=== PATIENT | female | born 1960 | race Caucasian/White ===

== ENCOUNTER 2019-11-09 18:27 | Inpatient (IN) | payer BC, SELFPAY ==
[~2019-11-09 18:27] MED LIST: Heparin 1,000 UNITS/ML VIAL ONE
[2019-11-09 19:17] LABS: #Lymphocytes 0.6 thou/uL (1.20-3.40); #Monocytes 0.9 thou/uL (0.11-0.59); #Neutrophils 12.6 thou/uL (1.40-6.50); %Basophils 0.1 % (0.0-1.0); %Eosinophils 0.1 % (0.0-10.0); %Lymphocytes 4.3 % (21.0-51.0); %Monocytes 6.1 % (0.0-10.0); %Neutrophils 89.4 % (42.0-75.0); Hemoglobin 14.6 g/dL (12.0-16.0); Mean Corpuscular HGB CONC 33.9 g/dL (32.0-36.0); Mean Corpuscular Hemoglobin 28.7 pg (27.0-31.0); Mean Corpuscular Volume 84.8 fL (78.0-98.0); Platelet Count 248 thou/uL (130-400); RBC Distribution Width 11.8 % (11.5-14.5); White Blood Cell (WBC) Count 14.1 thou/uL (4.8-10.8)
[2019-11-09] MEDS ORDERED: Piperacillin/Tazobactam 4.5 GM VIAL ONE (19:53)
[2019-11-09] MEDS ORDERED: Ondansetron PF 4 MG/2 ML Vial ONE (19:53)
[2019-11-09 20:03] LABS: ALT (SGPT) 18 U/L (8-55); AST (SGOT) 23 U/L (5-34); Albumin 4.6 g/dL (3.5-5.0); Alkaline Phosphatase 63 U/L (40-110); Anion Gap 18 mmol/L (10-20); BUN (Urea Nitrogen) 10 mg/dL (9.8-20.1); Bilirubin, Total 0.8 mg/dL (0.2-1.2); Calc. Creatinine Clearance 0 mL/min (70-130); Calcium 9.8 mg/dL (7.8-10.44); Carbon Dioxide 20 mmol/L (22-29); Chloride 101 mmol/L (98-107); Estimated GFR-MDRD 70; Globulin 2.9 g/dL (2.4-3.5); Glucose 250 mg/dL (70-105); Potassium 3.9 mmol/L (3.5-5.1); Protein, Total 7.5 g/dL (6.0-8.3); Sodium 135 mmol/L (136-145)
--- NOTE | 2019-11-09 20:08 | RAD ---
LEFT FOOT THREE VIEWS: History: Infection to toes. FINDINGS: The bones are demineralized. Vascular calcifications are seen. Old fifth metatarsal fractures noted. Calcaneal spurs are present. I see no plain film evidence for osteomyelitis. IMPRESSION: No plain film evidence of osteomyelitis. POS: [facility]
--- NOTE | 2019-11-09 20:25 | RAD ---
PORTABLE CHEST: History: Epigastric pain. FINDINGS: Heart size appears slightly enlarged. There are atherosclerotic changes of the aorta. The lungs are c lear of infiltrates. IMPRESSION: Mild cardiomegaly. POS: [facility]
[2019-11-09] MEDS ORDERED: hydrALAZINE 20 MG/ML VIAL SLOW IVP PRN (22:40)
[2019-11-09 22:47] VITALS: BMI 31.4
[2019-11-09 23:27] LABS: Hemoglobin A1c 9.4 % (4.0-6.0)
--- NOTE | 2019-11-10 00:02 | HP ---
PRIMARY CARE PHYSICIAN: The patient currently does not have a primary care physician. CHIEF COMPLAINT: Nausea and vomiting. HISTORY OF PRESENT ILLNESS: Ms. Dos Santos is a pleasant 59-year-old female, who has no significant past medical history. She says that about 2 months ago, she injured her foot while she was working at [employer]. 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 She was trying to treat on her own at home with different ointments and creams. 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 As a result, she came to the emergency room at the physician center about a week ago, where they gave her IV antibiotics, vancomycin and Zosyn, and sent her home on Bactrim DS as well as tramadol. She says that she had taken the medications for about a week and then this morning, she awoke with nausea and vomiting. She denies any abdominal pain. No fevers or chills. She denies any diarrhea. When she came to the ER for evaluation, basic lab work was obtained. It was noted that her white blood cell count was elevated at 14.1 with a left shift and she is also noted to have an elevated blood glucose. Plain films of the foot were negative for osteo. However, she did bring results from when she was in the ER at the [facility], which showed there were some concerning findings of osteomyelitis in the second and third toes. The patient says that her symptoms are improved with regard to the nausea and vomiting. However, there is still concern about residual infection in the toes. REVIEW OF SYSTEMS: All systems were reviewed and are negative except for that mentioned in the history of present illness. PAST MEDICAL HISTORY: Significant for borderline diabetes according to the patient. PAST SURGICAL HISTORY: She has a history of renal stones with removal in 2002. She had a total abdominal hysterectomy, tonsillectomy, adenoid surgery and also has had a left knee arthroscopic surgery. ALLERGIES: NO KNOWN DRUG ALLERGIES. SOCIAL HISTORY: She is . She is a nonsmoker. She drinks wine occasionally. She denies any illicit drug use. FAMILY HISTORY: Significant for her mother, who had kidney disease as well as heart transplant. MEDICATIONS: 1. Bactrim. 2. Tramadol. 3. Mupirocin. PHYSICAL EXAMINATION: GENERAL: She is alert and oriented. She appears to be in no acute distress. She is well developed and well nourished. VITAL SIGNS: Blood pressure was 136/76, heart rate 96, respiratory rate of 20, temperature is 99.8, and O2 saturation is 97% on room air. HEENT: Pupils are equal, round, and reactive. Extraocular muscles are intact. Her sclerae are anicteric. Throat, no erythema, no exudates. NECK: No adenopathy. No bruits. LUNGS: Clear to auscultation. There is no wheezing, no rales, no rhonchi. CARDIOVASCULAR: She has a normal S1, S2. There is no S3 or S4. No murmurs, clicks, or rubs. ABDOMEN: Soft, nontender, and nondistended. Positive for bowel sounds. There is no rebound, no guarding. No organomegaly. EXTREMITIES: There is no calf tenderness. No joint effusions. On her left foot, the second and third toes, there is a blister formation with blood underneath. Her dorsalis pedis pulses are diminished, but palpable. I was not able to feel the posterior tibial pulses on either foot. SKIN AND INTEGUMENT: She does have some skin changes of mild venous stasis changes on her lower extremities, but otherwise no other skin abnormalities or rashes. NEUROLOGIC: Nonfocal. LABORATORY RESULTS: Sodium is 135, potassium 3.9, chloride is 101, CO2 is 20, BUN of 10, creatinine 0.84, glucose is 250. Lactic acid is 1.6. White blood cell count is 14.1, hemoglobin 14.6, hematocrit is 43.2, and platelet count is 248. ASSESSMENT AND PLAN: This is a pleasant 59-year-old female, who presents with nausea and vomiting to the ER. She has no abdominal pain and her symptoms seem to have almost resolved. Liver function tests are negative. I suspect the nausea and vomiting is likely related to Bactrim. This will be withheld. We will continue symptomatic relief and reassess her in the a.m. 1. Cellulitis of the toes and possible osteomyelitis. We will get an MRI of her foot and further recommendations to follow. We will place her on IV antibiotics in the interim and get an arterial Doppler of both legs to assess her circulation. 2. Hyperglycemia. I suspect she has undiagnosed diabetes mellitus. We will check an A1c, as well as fasting blood glucose. She likely will need to be started on oral hypoglycemic agent. The patient will also be placed on DVT, as well as GI prophylaxis. Job ID: [id number]
[2019-11-10] MEDS: Piperacillin/Tazobactam 3.375 GM in Sodium Chloride 0.9% 100 ML IVPB SCH ×4 (01:40→20:16)
[2019-11-10 05:13] LABS: Anion Gap 13 mmol/L (10-20); BUN (Urea Nitrogen) 9 mg/dL (9.8-20.1); Calc. Creatinine Clearance 110 mL/min (70-130); Calcium 9.1 mg/dL (7.8-10.44); Carbon Dioxide 23 mmol/L (22-29); Chloride 104 mmol/L (98-107); Estimated GFR-MDRD 82; Glucose 171 mg/dL (70-105); Potassium 3.6 mmol/L (3.5-5.1); Sodium 136 mmol/L (136-145)
[2019-11-10] MEDS: Vancomycin HCl 1.25 GM in Sodium Chloride 0.9% 250 ML 250 ML IVPB SCH ×2 (05:52→18:10)
[2019-11-10 05:55] LABS: #Eosinphils 0.1 thou/uL (0.0-0.7); #Lymphocytes 1.2 thou/uL (1.20-3.40); #Monocytes 1.4 thou/uL (0.11-0.59); #Neutrophils 10.1 thou/uL (1.40-6.50); %Basophils 0.1 % (0.0-1.0); %Eosinophils 0.5 % (0.0-10.0); %Lymphocytes 9.5 % (21.0-51.0); %Monocytes 10.6 % (0.0-10.0); %Neutrophils 79.3 % (42.0-75.0); Hemoglobin 13.9 g/dL (12.0-16.0); Mean Corpuscular HGB CONC 33.4 g/dL (32.0-36.0); Mean Corpuscular Hemoglobin 29.3 pg (27.0-31.0); Mean Corpuscular Volume 87.7 fL (78.0-98.0); Mean Platelet Volume 7.8 fL (7.4-10.4); Platelet Count 230 thou/uL (130-400); RBC Distribution Width 11.9 % (11.5-14.5); Red Blood Cell (RBC) Count 4.72 mill/uL (4.20-5.40); White Blood Cell (WBC) Count 12.8 thou/uL (4.8-10.8)
[2019-11-10] MEDS: Acetaminophen 325 MG TAB PO PRN (05:59)
[2019-11-10] MEDS: Famotidine 20 MG TAB PO SCH ×2 (08:12→20:15)
[2019-11-10] MEDS: Enoxaparin Sodium 40 MG/0.4 ML SYRINGE SC SCH (08:13)
[2019-11-10] MEDS ORDERED: Vancomycin HCl 1 GM in Premix Bag 1 BAG IVPB SCH (09:00)
--- NOTE | 2019-11-10 10:54 | PDOC.HOSPP ---
- Subjective Encounter Date: 11/10/19 Encounter Time: 13:40 Subjective: Patient with fever this AM. Better now. Stinging pain in left toes improved some. Refusing to take Metformin, states made her feel sick in past. Reluctantly agreeable to try other DM meds. - Objective Vital Signs & Weight: Vital Signs (12 hours) Temp Pulse Resp BP Pulse Ox 11/10/19 07:49 99.0 F 91 20 121/78 95 11/10/19 04:33 100.6 F H 101 H 20 140/72 95 11/10/19 00:19 99.0 F 91 20 130/77 96 Weight Weight 183 lb 1.6 oz I&O: 11/09/19 11/10/19 11/11/19 06:59 06:59 06:59 Intake Total 510 300 Balance 510 300 Result Diagrams: 11/10/19 04:37 11/10/19 04:37 Additional Labs: Accuchecks 11/10/19 11/09/19 04:36 20:12 POC Glucose 171 H 243 H Hospitalist ROS - Review of Systems Constitutional: reports: fever, chills Respiratory: denies: cough, dry, shortness of breath Cardiovascular: denies: chest pain, palpitations, orthopnea Gastrointestinal: denies: nausea, vomiting, abdominal pain Musculoskeletal: reports: foot pain Skin: reports: rash - Medication Medications: Active Medications Generic Name Dose Route Start Last Admin Trade Name Freq PRN Reason Stop Dose Admin Acetaminophen 650 mg 11/09/19 22:40 11/10/19 05:59 Tylenol PO 650 mg Q4H PRN Administration Headache/Fever/Mild Pain (1-3) Enoxaparin Sodium 40 mg 11/10/19 09:00 11/10/19 08:13 Lovenox SC Not Given 0900 JOHN Famotidine 20 mg 11/10/19 09:00 11/10/19 08:12 Pepcid PO 20 mg BID JOHN Administration Piperacillin Sod/Tazobactam 100 mls @ 200 mls/hr 11/10/19 02:00 11/10/19 08: 12 Sod 3.375 gm/ Sodium Chloride IVPB 100 mls 0200,0800,1400,2000 JOHN Administration Vancomycin HCl 1.25 gm/ Sodium 250 mls @ 166.667 mls/hr 11/10/19 06:00 05:52 Chloride IVPB 250 mls 0600,1800 JOHN Administration - Exam General Appearance: NAD Eye: anicteric sclera ENT: moist mucosa Heart: RRR, no murmur, no gallops, no rubs Respiratory: CTAB, no wheezes, no rales, no ronchi Gastrointestinal: soft, non-tender, non-distended, normal bowel sounds Extremities: no cyanosis, no clubbing, no edema Extremities - other findings: sores with escar to left 2nd and 3rd toes Psychiatric: normal affect, normal behavior, A&O x 3 Hosp A/P (1) Cellulitis of lower extremity Code(s): L03.119 - CELLULITIS OF UNSPECIFIED PART OF LIMB Status: Acute Qualifiers: Laterality: left Qualified Code(s): L03.116 - Cellulitis of left lower limb (2) Sepsis Code(s): A41.9 - SEPSIS, UNSPECIFIED ORGANISM Status: Acute Plan: leukocytosis, fever, tachycardia overnight, now improved (3) Diabetes mellitus type 2 in obese Code(s): E11.69 - TYPE 2 DIABETES MELLITUS WITH OTHER SPECIFIED COMPLICATION; E66.9 - OBESITY, UNSPECIFIED Status: Acute Plan: new diagnosis - Plan continue antibiotics, DVT proph w/lovenox start glipizide on Zosyn and Vancomycin for foot infection with mild sepsis MRI showing old not healed fracture, possible osteo of left 2nd and 3rd toes Will consult Dr. Naylor to see if might be amenable to antibiotics or if needs surgery
[2019-11-10] MEDS ORDERED: metFORMIN 500 MG TAB PO SCH ×2 (11:00→17:00)
--- NOTE | 2019-11-10 13:21 | MRI ---
MRI of left foot performed with and without contrast enhancement: HISTORY: Patient has injury to second and third toes. Developed a blister on toes. Evaluation for und erlying infection. COMPARISON: Plain film examination which was performed yesterday. FINDINGS: There is a fracture of the distal fifth metatarsal neck it does show bony callus formation. Fracture line is still evident suggesting incomplete healing. At the level of the second toe there are edema changes involving the middle phalanx and distal aspect of the proximal phalanx with some enhancement. There is also mild edema change and enhancement involving the distal phalanx of the third toe and minimal edema change involving the middle phalanx. IMPRESSION: Changes involving the second and third toes as described above which could represent reac tive bony changes but may represent early osteomyelitis changes to include the middle and distal phalanx of the third toe and proximal and middle phalanx of the second toe
--- NOTE | 2019-11-10 13:31 | ULT ---
BILATERAL LOWER EXTREMITY ARTERIAL DOPPLER STUDY: INDICATIONS: Decreased peripheral pulses. TECHNIQUE: The arteries of both lower extremities are evaluated with ultrasound Doppler with color Doppler and s pectral analysis with velocity recordings at all segments. FINDINGS: RIGHT LOWER EXTREMITY: Right common femoral artery shows a triphasic wave-form. The profunda shows a biphasic to triphasic wave-form. The proximal superficial femoral artery shows a triphasic wave-form. The mid and distal superficial femoral artery is biphasic. The right popliteal, anterior tibial artery, posterior tibial artery and dorsalis pedis artery all ex hibit biphasic wave-form. LEFT LOWER EXTREMITY: A biphasic wave-form is seen involving the left common femoral artery, profunda femoral, superficial femoral, popliteal and anterior tibial artery. Biphasic wave-form is also seen in the dorsal pedis artery. The posterior tibial artery exhibits a triphasic wave-form. IMPRESSION: Lower extremity Doppler study shows evidence of mild peripheral vascular disease with biphasic wave-f orm seen bilaterally. POS: [facility]
[2019-11-11] MEDS: Piperacillin/Tazobactam 3.375 GM in Sodium Chloride 0.9% 100 ML IVPB SCH ×4 (02:29→20:00)
[2019-11-11] MEDS: Acetaminophen 325 MG TAB PO PRN (02:31)
[2019-11-11 05:38] LABS: Vancomycin, Trough 7.7 ug/mL
[2019-11-11] MEDS: Vancomycin HCl 1.25 GM in Sodium Chloride 0.9% 250 ML 250 ML IVPB SCH ×3 (06:25→21:40)
[2019-11-11] MEDS: glipiZIDE 5 MG TAB PO SCH (09:02)
[2019-11-11] MEDS: Famotidine 20 MG TAB PO SCH ×2 (09:02→20:00)
[2019-11-11] MEDS: Enoxaparin Sodium 40 MG/0.4 ML SYRINGE SC SCH (09:03)
--- NOTE | 2019-11-11 10:08 | PDOC.HOSPP ---
- Subjective Encounter Date: 11/11/19 Encounter Time: 12:30 Subjective: Patient with low grade fever (100.7) early this morning. Intermittent pain in toes. No other complaints. - Objective Vital Signs & Weight: Vital Signs (12 hours) Temp Pulse Resp BP BP Pulse Ox 11/11/19 08:00 98.1 F 85 18 130/80 96 11/11/19 04:00 99.6 F 91 20 137/83 96 11/11/19 00:28 100.7 F H 92 20 140/86 94 L Weight Admit Weight 183 lb Weight 183 lb 1.6 oz I&O: 11/10/19 11/11/19 11/12/19 06:59 06:59 06:59 Intake Total 510 1950 300 Balance 510 1950 300 Result Diagrams: 11/10/19 04:37 11/10/19 04:37 Additional Labs: Accuchecks 11/11/19 11/10/19 11/10/19 04:25 20:03 16:53 POC Glucose 173 H 260 H 271 H 11/10/19 14:43 POC Glucose 242 H Hospitalist ROS - Review of Systems Constitutional: reports: fever. denies: chills Respiratory: denies: cough, shortness of breath Cardiovascular: denies: chest pain, palpitations Gastrointestinal: denies: nausea, vomiting, abdominal pain Skin: reports: rash - Medication Medications: Active Medications Generic Name Dose Route Start Last Admin Trade Name Freq PRN Reason Stop Dose Admin Acetaminophen 650 mg 11/09/19 22:40 11/11/19 02:31 Tylenol PO 650 mg Q4H PRN Administration Headache/Fever/Mild Pain (1-3) Enoxaparin Sodium 40 mg 11/10/19 09:00 11/11/19 09:03 Lovenox SC Not Given 0900 JOHN Famotidine 20 mg 11/10/19 09:00 11/11/19 09:02 Pepcid PO 20 mg BID JOHN Administration Glipizide 5 mg 11/11/19 07:30 11/11/19 09:02 Glucotrol PO 5 mg DAILY-AC JOHN Administration Piperacillin Sod/Tazobactam 100 mls @ 200 mls/hr 11/10/19 02:00 11/11/19 08: 59 Sod 3.375 gm/ Sodium Chloride IVPB 100 mls 0200,0800,1400,2000 JOHN Administration Vancomycin HCl 1.25 gm/ Sodium 250 mls @ 166.667 mls/hr 11/11/19 06:00 06:25 Chloride IVPB 250 mls Q8HR JOHN Administration - Exam General Appearance: NAD, awake alert Eye: anicteric sclera ENT: moist mucosa Heart: RRR, no murmur, no gallops Respiratory: CTAB, no wheezes, no rales, no ronchi Gastrointestinal: soft, non-tender, non-distended, normal bowel sounds Extremities - other findings: left 2nd and 3rd toes with infection and eschar, no spreading cellulitis Neurological - other findings: sensation appears intact in toes Psychiatric: normal affect, normal behavior, A&O x 3 Hosp A/P (1) Cellulitis of lower extremity Code(s): L03.119 - CELLULITIS OF UNSPECIFIED PART OF LIMB Status: Acute Qualifiers: Laterality: left Qualified Code(s): L03.116 - Cellulitis of left lower limb (2) Sepsis Code(s): A41.9 - SEPSIS, UNSPECIFIED ORGANISM Status: Acute (3) Diabetes mellitus type 2 in obese Code(s): E11.69 - TYPE 2 DIABETES MELLITUS WITH OTHER SPECIFIED COMPLICATION; E66.9 - OBESITY, UNSPECIFIED Status: Acute - Plan continue antibiotics, PT/OT starting glipizide on Zosyn and Vancomycin for foot infection with mild sepsis MRI showing old not healed fracture, possible osteo of left 2nd and 3rd toes Consulted Dr. Naylor to see if might be amenable to antibiotics or if needs surgery
--- NOTE | 2019-11-11 17:04 | CON ---
DATE OF CONSULTATION: REASON FOR CONSULTATION: Left foot 2nd and 3rd toe osteomyelitis. HISTORY OF PRESENT ILLNESS: A 59-year-old who has a history of type 2 diabetes and nephrolithiasis, developed vomiting and diarrhea associated with fever. Apparently, previously identified with a toe ulcer in the 2nd and 3rd toes of the left foot treated at [facility] with IV antimicrobials and then oral Bactrim. The toe inflammatory process has not improved much and she developed probably gastrointestinal adverse reaction from the Bactrim. The patient was admitted and had a vascular study, which showed mild decrease in the large arterial supply with biphasic waveform seen bilaterally. A foot x-ray did not reveal any evidence of bone destruction, but MRI showed some early bone edema. She is having intermittent what appears to be neuropathic pain in the left foot. No headaches , visual symptoms, sore throat, odynophagia, or dysphagia. No cough or sputum production. No chest pain. No abdominal pain or diarrhea. No genitourinary symptoms. No other joint symptoms. No neurological symptoms. MEDICAL HISTORY: 1. Type 2 diabetes. 2. Nephrolithiasis. SURGICAL HISTORY: 1. Hysterectomy. 2. Arthroscopy of left knee. 3. Tonsillectomy. SOCIAL HISTORY: Never smoker. Drinks occasionally. . FAMILY HISTORY: Coronary artery disease and type 2 diabetes. ALLERGIES: NEGATIVE. CURRENT MEDICATIONS: 1. Lovenox. 2. Pepcid. 3. Glucotrol. 4. Zosyn. 5. Vancomycin. PHYSICAL EXAMINATION: VITAL SIGNS: T-max 100.6, 100.7, and now 98.1; blood pressure 130/80; pulse 91; respirations 20; and O2 saturation 96. SKIN: The area of small eschar at the dorsal aspect of the 2nd and 3rd toes of the left foot. Some areas of hyperpigmentation in the dorsal aspect of the right and left mid foot region. Peripheral IV access voiding spontaneously. No lymphadenopathy. HEENT: Noncontributory. NECK: Supple. LUNGS: Symmetric with clear breath sounds. HEART: S1 and S2. Regular rate. No S3 or S4. ABDOMEN: Soft, not distended or tender. No ascites. No bladder distention. EXTREMITIES: No joint inflammatory activity outside the involved area. Could not feel popliteals on the left side, but there are 1+ in the right. Dorsalis pedis are pretty strong on the right, 1 to 2+ in the left side, but not palpable. Cap refills are difficult to assess. The extremities are warm to touch. NEUROLOGIC: Nonfocal. Cognitive function is normal. LABORATORY DATA: White cell count 14.1 and 12.8, hemoglobin 13, and platelets 230. Creatinine 0.73. Liver profile normal. Albumin 4.6. Two sets of blood cultures, no growth thus far. ASSESSMENT: Type 2 diabetes with likely neuropathy and mild to mod peripheral vascular disease, more significant on the left side with associated ulcerations at the dorsal aspect of 2nd and 3rd toes, left side, probably from tight fitting shoes with development of chronic ulcerations and early osteomyelitis. I could not find any evidence of bone exposure and I think it is reasonable to treat conservatively for the time being. We do not have microbiology guidance, so we have to treat with broad spectrum and we will place a PICC line and plan outpatient treatment probably with combination of Invanz and vancomycin or similar regimen. Treat for a protracted period of time, discussed potential adverse reactions from the antimicrobials, particularly rash and diarrhea. Also discussed the potential failure of treatment and eventual requirement for amputation of the 2nd and/or 3rd toes. Job ID: [id number] [facility]
[2019-11-11] MEDS: traMADol HCl 50 MG TAB PO PRN (21:37)
[2019-11-12] MEDS: Piperacillin/Tazobactam 3.375 GM in Sodium Chloride 0.9% 100 ML IVPB SCH ×4 (01:55→19:58)
[2019-11-12 05:43] LABS: #Eosinphils 0.3 thou/uL (0.0-0.7); #Lymphocytes 1.9 thou/uL (1.20-3.40); #Monocytes 1.3 thou/uL (0.11-0.59); #Neutrophils 7.2 thou/uL (1.40-6.50); %Basophils 0.2 % (0.0-1.0); %Eosinophils 2.6 % (0.0-10.0); %Lymphocytes 17.4 % (21.0-51.0); %Monocytes 12.1 % (0.0-10.0); %Neutrophils 67.7 % (42.0-75.0); Hemoglobin 12.2 g/dL (12.0-16.0); Mean Corpuscular HGB CONC 35.3 g/dL (32.0-36.0); Mean Corpuscular Hemoglobin 30.2 pg (27.0-31.0); Mean Corpuscular Volume 85.6 fL (78.0-98.0); Mean Platelet Volume 7.6 fL (7.4-10.4); Platelet Count 206 thou/uL (130-400); RBC Distribution Width 11.6 % (11.5-14.5); Red Blood Cell (RBC) Count 4.04 mill/uL (4.20-5.40); White Blood Cell (WBC) Count 10.7 thou/uL (4.8-10.8)
[2019-11-12 06:05] LABS: Anion Gap 13 mmol/L (10-20); BUN (Urea Nitrogen) 8 mg/dL (9.8-20.1); Calc. Creatinine Clearance 124 mL/min (70-130); Calcium 8.8 mg/dL (7.8-10.44); Carbon Dioxide 23 mmol/L (22-29); Chloride 105 mmol/L (98-107); Estimated GFR-MDRD Greater than 90; Glucose 173 mg/dL (70-105); Potassium 3.1 mmol/L (3.5-5.1); Sodium 138 mmol/L (136-145); Vancomycin, Trough 12.6 ug/mL
[2019-11-12] MEDS: Vancomycin HCl 1.25 GM in Sodium Chloride 0.9% 250 ML 250 ML IVPB SCH (06:31)
[2019-11-12] MEDS: Famotidine 20 MG TAB PO SCH ×2 (08:00→19:58)
[2019-11-12] MEDS: glipiZIDE 5 MG TAB PO SCH (08:00)
[2019-11-12] MEDS: Enoxaparin Sodium 40 MG/0.4 ML SYRINGE SC SCH (08:01)
--- NOTE | 2019-11-12 10:01 | SPC ---
Left upper extremity PICC sonographic guided HISTORY: Foot infection. FINDINGS: After explaining the procedure and answering all questions, left upper extremity was preppe d and draped in usual sterile fashion sterile technique, buffered local anesthesia, sonographic, and a 22-gauge needle were used to carefully access the left cephalic vein. Standard technique was us ed to place the tip of a 5 Urdu single lumen PICC so that the tip lies at the level of the cavoatrial junction. Catheter was flushed and secured externally. Patient tolerated the procedure wel l and was returned in unchanged condition. Fluoroscopy time 0 seconds. IMPRESSION: Left upper extremity PICC is ready for use
[2019-11-12] MEDS ORDERED: Ondansetron PF 4 MG/2 ML Vial SLOW IVP PRN (12:43)
[2019-11-12] MEDS: Vancomycin 1.5 GRAM/300 ML BAG 1.5 GM in Premix Bag 1 BAG IVPB SCH ×2 (13:50→21:56)
--- NOTE | 2019-11-12 16:15 | PDOC.HOSPP ---
- Subjective Encounter Date: 11/12/19 Encounter Time: 16:15 Subjective: cc: f/u for left toe osteomyelitis. subjective: patient is new to me. seen and personally examined at bedside. chart , labs, imaging results reviewed. feels okay. had LUE PICC placed today. left toes less painful. reports she is awaiting case management approval for antibiotics to continue through end November 2019 - Objective Vital Signs & Weight: Vital Signs (12 hours) Temp Pulse Resp BP Pulse Ox 11/12/19 08:00 98.6 F 91 18 139/87 95 Weight Admit Weight 183 lb Weight 183 lb 1.6 oz I&O: 11/11/19 11/12/19 11/13/19 06:59 06:59 06:59 Intake Total 1950 840 Balance 1950 840 Result Diagrams: 11/12/19 05:35 11/12/19 05:35 Additional Labs: Accuchecks 11/12/19 11/12/19 11/11/19 11:46 04:05 20:03 POC Glucose 154 H 166 H 200 H 11/11/19 16:31 POC Glucose 156 H Hospitalist ROS - Review of Systems Other: pertinent positive per SUBJECTIVE; remainder ROS negative - Medication Medications: Active Medications Generic Name Dose Route Start Last Admin Trade Name Freq PRN Reason Stop Dose Admin Acetaminophen 650 mg 11/09/19 22:40 11/11/19 02:31 Tylenol PO 650 mg Q4H PRN Administration Headache/Fever/Mild Pain (1-3) Enoxaparin Sodium 40 mg 11/10/19 09:00 11/12/19 08:01 Lovenox SC Not Given 0900 JOHN Famotidine 20 mg 11/10/19 09:00 11/12/19 08:00 Pepcid PO 20 mg BID JOHN Administration Glipizide 5 mg 11/11/19 07:30 11/12/19 08:00 Glucotrol PO 5 mg DAILY-AC JOHN Administration Piperacillin Sod/Tazobactam 100 mls @ 200 mls/hr 11/10/19 02:00 11/12/19 13: 46 Sod 3.375 gm/ Sodium Chloride IVPB 100 mls 0200,0800,1400,2000 JOHN Administration Vancomycin HCl 1.5 gm/ Device 300 mls @ 200 mls/hr 11/12/19 14:00 11/12/19 13 :50 IVPB 300 mls Q8HR JOHN Administration Ondansetron HCl 4 mg 11/12/19 12:43 11/12/19 12:57 Zofran SLOW IVP 4 mg Q6H PRN Administration Nausea/Vomiting Tramadol HCl 50 mg 11/11/19 21:29 11/11/19 21:37 Ultram PO 50 mg Q6H PRN Administration Pain - Exam General Appearance: NAD (MRI left foot: may have early OM involving 3rd middle and distal phalanx and 2nd proximal and middle phalanx), awake alert Eye: PERRL, anicteric sclera ENT: normocephalic atraumatic, no oropharyngeal lesions Neck: supple Heart: RRR, no murmur Respiratory: CTAB, no wheezes, no rales, normal chest expansion Gastrointestinal: soft, non-tender, non-distended, normal bowel sounds Extremities: no cyanosis, no edema Extremities - other findings: abrasion on left 2nd and 3rd toe. scabbed area noted without drainage. Musculoskeletal: normal tone, normal strength, no muscle wasting Psychiatric: normal affect, normal behavior, A&O x 3 Hosp A/P - Plan Possibe early osteomyelitis involving left 2nd (proximal and middle phalanx) and left 3rd (middle and distal phalanx). MRI results noted. ID input noted. s/p LUE PICC. case mgmt consulted to guide prolonged IV antibiotics to avoid surgical intervention. continue local wound care. continue glycemic control. continue PT and OT. ultrasound without flow limiting stenosis. T2DM a1c 9.4%. started on oral sulfonylurea. monitor accuchecks. patient notes strict dietary control and has had recent intentional weight loss Fever, defervesced. monitor. Left incompletely healed 5th digit fracture, noted per MRI DVT px LMWH dispo: await prolonged IV antibiotics be set up by case mgmt for presumed acute osteomyelitis to avoid surgical intervention
[2019-11-12] MEDS: traMADol HCl 50 MG TAB PO PRN (21:57)
[2019-11-13] MEDS: Piperacillin/Tazobactam 3.375 GM in Sodium Chloride 0.9% 100 ML IVPB SCH ×4 (02:05→20:21)
[2019-11-13] MEDS: Vancomycin 1.5 GRAM/300 ML BAG 1.5 GM in Premix Bag 1 BAG IVPB SCH ×3 (05:35→21:33)
[2019-11-13] MEDS: Enoxaparin Sodium 40 MG/0.4 ML SYRINGE SC SCH (07:54)
[2019-11-13] MEDS: Famotidine 20 MG TAB PO SCH ×2 (08:22→20:21)
[2019-11-13] MEDS: glipiZIDE 5 MG TAB PO SCH (08:23)
--- NOTE | 2019-11-13 13:25 | PDOC.HOSPP ---
- Subjective Encounter Date: 11/13/19 Encounter Time: 13:25 Subjective: cc: f/u for left foot osteomyelitis and cellulitis subjective: feels better today. no further nausea. left foot pain resolved. wants to go home. nurse notes case mgmt still working on arranging outpatient IV antibiotics - Objective Vital Signs & Weight: Vital Signs (12 hours) Temp Pulse Resp BP Pulse Ox 11/13/19 11:35 98.3 F 11/13/19 08:39 98.5 F 91 18 115/76 94 L Weight Admit Weight 183 lb Weight 183 lb 1.6 oz I&O: 11/12/19 11/13/19 11/14/19 06:59 06:59 06:59 Intake Total 840 Balance 840 Result Diagrams: 11/12/19 05:35 11/12/19 05:35 Additional Labs: Accuchecks 11/13/19 11/13/19 11/12/19 11:43 04:31 20:22 POC Glucose 182 H 169 H 174 H 11/12/19 16:18 POC Glucose 140 H Hospitalist ROS - Review of Systems Other: ROS: pertinent positive per SUBJECTIVE; remainder ROS negative - Medication Medications: Active Medications Generic Name Dose Route Start Last Admin Trade Name Freq PRN Reason Stop Dose Admin Acetaminophen 650 mg 11/09/19 22:40 11/11/19 02:31 Tylenol PO 650 mg Q4H PRN Administration Headache/Fever/Mild Pain (1-3) Enoxaparin Sodium 40 mg 11/10/19 09:00 11/13/19 07:54 Lovenox SC Not Given 0900 [facility] Famotidine 20 mg 11/10/19 09:00 11/13/19 08:22 Pepcid PO 20 mg BID JOHN Administration Glipizide 5 mg 11/11/19 07:30 11/13/19 08:23 Glucotrol PO 5 mg DAILY-AC JOHN Administration Piperacillin Sod/Tazobactam 100 mls @ 200 mls/hr 11/10/19 02:00 11/13/19 08: 16 Sod 3.375 gm/ Sodium Chloride IVPB 100 mls 0200,0800,1400,2000 JOHN Administration Vancomycin HCl 1.5 gm/ Device 300 mls @ 200 mls/hr 11/12/19 14:00 11/13/19 05 :35 IVPB 300 mls Q8HR JOHN Administration Ondansetron HCl 4 mg 11/12/19 12:43 11/12/19 12:57 Zofran SLOW IVP 4 mg Q6H PRN Administration Nausea/Vomiting Tramadol HCl 50 mg 11/11/19 21:29 11/12/19 21:57 Ultram PO 50 mg Q6H PRN Administration Pain Hosp A/P - Plan - Exam General Appearance: NAD, nontoxic, awake alert Eye: PERRL, anicteric sclera ENT: normocephalic atraumatic, no oropharyngeal lesions Neck: supple Heart: RRR, no murmur Respiratory: CTAB, no wheezes, no rales, normal chest expansion Gastrointestinal: soft, non-tender, non-distended, normal bowel sounds Extremities: no cyanosis, no edema Extremities - other findings: abrasion on left 2nd and 3rd toe. scabbed area noted without drainage, palpable left DP pulse Musculoskeletal: normal tone, normal strength, no muscle wasting Psychiatric: normal affect, normal behavior, A&O x 3 IMAGING: MRI left foot: may have early OM involving 3rd middle and distal phalanx and 2nd proximal and middle phalanx) Micro: blood cultures NGTD Hosp A/P - Plan Possible cellulitis with early osteomyelitis involving left 2nd (proximal and middle phalanx) and left 3rd (middle and distal phalanx). MRI results noted. ID input noted. continue IV vancomycin and zosyn. s/p LUE PICC 11/12/19. case mgmt consulted to guide prolonged IV antibiotics with IV rocephin and IV Daptomycin to avoid surgical intervention. continue local wound care. continue glycemic control. continue PT and OT. ultrasound without flow limiting stenosis. T2DM a1c 9.4%. Continue oral sulfonylurea. monitor accuchecks. patient notes strict dietary control and has had recent intentional weight loss Fever, defervesced. monitor. Left incompletely healed 5th digit fracture, noted per MRI DVT px LMWH dispo: patient medically stable for discharge with LUE PICC once prolonged IV antibiotics through 12/19/2019 are set up by case mgmt for presumed acute osteomyelitis to avoid surgical intervention
[2019-11-13] MEDS: traMADol HCl 50 MG TAB PO PRN (21:32)
[2019-11-14] MEDS: Piperacillin/Tazobactam 3.375 GM in Sodium Chloride 0.9% 100 ML IVPB SCH ×3 (02:43→14:48)
[2019-11-14] MEDS: Vancomycin 1.5 GRAM/300 ML BAG 1.5 GM in Premix Bag 1 BAG IVPB SCH ×2 (05:08→14:52)
[2019-11-14 07:39] VITALS: BP 133/81; TEMP 98.3
[2019-11-14] MEDS: Enoxaparin Sodium 40 MG/0.4 ML SYRINGE SC SCH (08:37)
[2019-11-14] MEDS: glipiZIDE 5 MG TAB PO SCH (08:40)
[2019-11-14] MEDS: Famotidine 20 MG TAB PO SCH (08:40)
--- NOTE | 2019-11-16 21:06 | PQF ---
Kyara Dos Santos SAVAN, MD [id number] CLINICAL DOCUMENTATION CLARIFICATION FORM: POST DISCHARGE Addendum to original discharge summary date: ____ Late entry note date: __ DATE: 11/16/19 ATTN: Ed Rayo Please exercise your independent, professional judgment in responding to the clarification form. Clinical indicators are provided on the bottom of this form for your review Please check appropriate box(s) to clarify if the following diagnosis has been ruled in or ruled out: Sepsis [ ] Ruled in diagnosis [ ] Continue to treat [ ] Resolved [ ] Ruled out diagnosis [ ] Cannot rule out diagnosis [ ] Other diagnosis [ ] Unable to determine In addition, please specify: Present on Admission (POA): [ ] Yes [ ] No [ ] Unable to determine For continuity of documentation, please document condition throughout progress notes and discharge summary. Thank You. 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 She was trying to treat on her own at home with different ointments and creams. 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 H&P p1 11/09 Dr Golden It was noted that her white blood cell count was elevated at 14.1 With a left shift and she is also noted to have an elevated blood glucose. Plain films of the foot were negative for osteo. However, she did bring results from when she was in the ER at the [facility], which showed there were some concerning findings of osteomyelitis in the second and third toes. RISK FACTORS ED provider note p4 11/09 Sepsis from Cellulitis H&P p3 11/09 Cellulitis H&P p3 11/09 Osteomyelitis H&P p3 11/09 DM with hyperglycemia TREATMENTS JAN 28 IV Vancomycin JAN 28 IV Zosyn JAN 28 Glipizide ID consult 11/10 Diego Long (This form is maintained as a part of the permanent medical record) 2014 [employer]. All Rights Reserved [email or web address] [not provided] MTDD
== END 2019-11-14 18:28 | disposition home or self-care (01) | DRG 638 ==
LOC: ERS 18:27 → T4-B 22:42
PROVIDERS: ADMIT Internal Medicine; ATTEND Internal Medicine
PROC: 02HV33Z Insertion of Infusion Device into Superior Vena Cava, Percutaneous Approach (ICD-10-PCS; principal; 2019-11-12)
PROC: B518ZZA Fluoroscopy of Superior Vena Cava, Guidance (ICD-10-PCS; 2019-11-12)
DX: E11.69 Type 2 diabetes mellitus with other specified complication (principal); M86.172 Other acute osteomyelitis, left ankle and foot; L03.032 Cellulitis of left toe; E11.65 Type 2 diabetes mellitus with hyperglycemia; X58.XXXD Exposure to other specified factors, subsequent encounter; S92.502G Displaced unspecified fracture of left lesser toe(s), subsequent encounter for fracture with delayed healing; Z79.899 Other long term (current) drug therapy
CPT/HCPCS: 36415; 36416; 36569; 71045; 80048; 80053; 80202; 83036; 83605; 85025; 87040; 93923; 96361; 96365; 96367; 96375; C1751; J1644; J2405; J2543; J3370; J3490; J7050

== ENCOUNTER 2020-02-19 14:55 | Inpatient (IN) | payer OTHER ==
[2020-02-19] MEDS ORDERED: Acetaminophen 325 MG TAB PO PRN (17:16)
[2020-02-19] MEDS ORDERED: Zolpidem Tartrate 5 MG TAB PO PRN (17:16)
[2020-02-19] MEDS ORDERED: Ondansetron ODT 4 MG TAB PO PRN (17:16)
[2020-02-19] MEDS ORDERED: Dextrose 5% in Water 1,000 ML IV PRN (17:16)
[2020-02-19] MEDS ORDERED: Dextrose 50% Abboject 50 ML SYRINGE SLOW IVP PRN (17:16)
[2020-02-19 17:44] LABS: #Basophils 0.1 thou/uL (0.0-0.2); #Eosinphils 0.3 thou/uL (0.0-0.7); #Lymphocytes 3.2 thou/uL (1.20-3.40); #Monocytes 1.2 thou/uL (0.11-0.59); #Neutrophils 7.6 thou/uL (1.40-6.50); %Basophils 0.7 % (0.0-1.0); %Eosinophils 2.6 % (0.0-10.0); %Lymphocytes 25.5 % (21.0-51.0); %Monocytes 9.5 % (0.0-10.0); %Neutrophils 61.7 % (42.0-75.0); Hemoglobin 16.7 g/dL (12.0-16.0); Mean Corpuscular HGB CONC 32.7 g/dL (32.0-36.0); Mean Corpuscular Hemoglobin 25.9 pg (27.0-31.0); Mean Corpuscular Volume 79.2 fL (78.0-98.0); Mean Platelet Volume 8.3 fL (7.4-10.4); Platelet Count 298 thou/uL (130-400); Red Blood Cell (RBC) Count 6.44 mill/uL (4.20-5.40); White Blood Cell (WBC) Count 12.4 thou/uL (4.8-10.8)
--- NOTE | 2020-02-19 17:54 | HP ---
PRIMARY CARE PROVIDER: Mehdi Manzano MD HISTORY OF PRESENT ILLNESS: Direct admit from Dr. Naylor' office. The patient with a wound on her left foot for 4 to 5 months, draining. No fever. No chills. It is painful at night. It was treated with antibiotics IV at the end of the previous year. PAST MEDICAL HISTORY: Diabetes mellitus, type 2; hypertension; and congestive heart failure diagnosed in January of this year. CURRENT MEDICATIONS: 1. Lasix 40 mg twice a day. 2. Lisinopril 20 mg a day. 3. Coreg 6.25 mg twice a day. 4. KCl 20 mEq a day. 5. Tylenol No. 3 one p.o. q.4 hours for pain. 6. She takes some form of supplement for diabetes. ALLERGIES: NONE. PAST SURGICAL HISTORY: In 2002, hysterectomy for endometrial cancer. She has had a left knee arthroscopic surgery x2. She has had a history of renal stones. FAMILY HISTORY: Grandmother and uncle had diabetes. Father with coronary artery disease. Mother at young with renal disease. SOCIAL HISTORY: , . Full code status. He is next of kin. No tobacco, but she relates 20 years of secondhand smoke as both parents smoked. Very occasional alcohol. REVIEW OF SYSTEMS: GENERAL: No headaches, dizziness, or fainting. EYES: She had blurred vision when on glipizide for diabetes, none presently. EARS, NOSE, AND THROAT: No ear pain or drainage. No nasal bleeding. No trouble swallowing. CARDIAC: No chest pain, orthopnea, or paroxysmal nocturnal dyspnea. RESPIRATORY: No cough, wheezing, asthma, or shortness of breath. She did have shortness of breath prior to being treated for congestive heart failure. GI: No abdominal pain, nausea, vomiting, diarrhea, or constipation. Genitourinary: No hematuria, dysuria, or nocturia. MUSCULOSKELETAL: Earlier in the year, she had swelling in her legs. She has had no pain or swelling since then. NEUROLOGIC: No strokes, seizures, or focal weakness. PSYCHIATRIC: No anxiety or depression. SKIN: No bruising, bleeding, or rash. HEME/LYMPH: No tender or swollen lymph nodes in the axilla, inguinal, or cervical area. PHYSICAL EXAMINATION: GENERAL: Alert, oriented, cooperative, pleasant. VITAL SIGNS: Pulse 66, respirations 16, blood pressure 120/70. HEAD, EYES, EARS, NOSE, AND THROAT: Revealed pupils are equal, round, and reactive to light. Extraocular movements are intact. Sclerae are white. Tympanic membranes are clear. Nose is clear. Oral mucous membranes are wet. Dental hygiene is good. NECK: Supple without jugular venous distention, adenopathy, or thyromegaly. CHEST: Clear to auscultation and percussion. HEART: Had a regular rate and rhythm. First and second heart sounds are clear without murmurs or gallops. ABDOMEN: Soft. Bowel sounds are normal. There is no hepatosplenomegaly. No mass. No rebound. No bruits. EXTREMITIES: Severe ischemic changes left 2nd and 3rd toes Revealed no cyanosis , clubbing, or edema. PULSES: Carotid, radial, femoral, and dorsalis pedis pulses are intact. SKIN: Warm and dry without bruises or rash. HEME/LYMPH: No tender or swollen lymph nodes in the axilla, inguinal, or cervical area. NEUROLOGIC: Cranial nerves 2 through 12 are intact. Deep tendon reflexes are symmetric. LABORATORY DATA: Chest x-ray, EKG, CBC, comprehensive metabolic profile have been ordered. I have discussed this case with Dr. Naylor. ADMITTING DIAGNOSIS: Osteomyelitis of the left foot; diabetes mellitus, type 2; hypertension; and congestive heart failure. PLAN: Dr. Naylor is placing orders for vascular assessment, osteomyelitis testing, cultures, and antibiotics. I have requested records from a previous hospitalization at a [facility] earlier this year. Job ID: [id number] MTDD
[2020-02-19] MEDS ORDERED: Acetaminophen/Codeine 30-300mg Tablet PO PRN (18:09)
--- NOTE | 2020-02-19 18:12 | RAD ---
TWO VIEWS OF THE CHEST: 02/19/20 COMPARISON: None. HISTORY: CHF. FINDINGS: Two views of the chest show normal sized cardiomediastinal silhouette. There is no evidence of consol idation, mass, or pleural effusion. Degenerative changes are seen in the spine. IMPRESSION: No evidence of acute cardiopulmonary disease. POS: C
--- NOTE | 2020-02-19 18:14 | RAD ---
THREE VIEWS OF THE LEFT FOOT: 02/19/20 COMPARISON: 11/09/19. HISTORY: Chronic ulcers in the second and third toes. FINDINGS: Three views of the left foot shows diffuse osteopenia. Vascular calcifications are seen. Osteopenia i s seen in the second, third, and fourth metatarsal heads. This has not changed significantly compared to the prior examination. No obvious erosions are seen in the tips of the second or third toes. No s ignificant change is seen in the bones of the distal phalanges of these toes compared to the prior ra diographs. Remodeling of the fifth metatarsal may represent a healed fracture in this location. IMPRESSION: Diffuse osteopenia with stable changes involving the distal osteophyte of the second through fourth m etatarsals. POS: RACHEL
[2020-02-19 18:20] LABS: ALT (SGPT) 29 U/L (8-55); AST (SGOT) 38 U/L (5-34); Albumin 4.7 g/dL (3.5-5.0); Alkaline Phosphatase 73 U/L (40-110); Anion Gap 17 mmol/L (10-20); BUN (Urea Nitrogen) 25 mg/dL (9.8-20.1); Bilirubin, Total 0.5 mg/dL (0.2-1.2); Calc. Creatinine Clearance 0 mL/min (70-130); Calcium 10.3 mg/dL (7.8-10.44); Carbon Dioxide 23 mmol/L (22-29); Chloride 103 mmol/L (98-107); Estimated GFR-MDRD 67; Globulin 3.6 g/dL (2.4-3.5); Glucose 99 mg/dL (70-105); Potassium 4.5 mmol/L (3.5-5.1); Protein, Total 8.3 g/dL (6.0-8.3); Sodium 138 mmol/L (136-145)
[2020-02-19 19:40] VITALS: BMI 29.3
[2020-02-19] MEDS ORDERED: Carvedilol 6.25 MG TAB PO SCH (21:00)
[2020-02-19] MEDS ORDERED: Furosemide 40 MG TAB PO SCH (21:00)
[2020-02-19] MEDS: HYDROcodone/Acetaminophen 5/325 mg Tablet PO PRN (21:47)
[2020-02-20] MEDS: Enoxaparin Sodium 40 MG/0.4 ML SYRINGE SC SCH (07:29)
--- NOTE | 2020-02-20 07:46 | CON ---
DATE OF CONSULTATION: HISTORY OF PRESENT ILLNESS: This is a patient who developed a blister from shoes in August of last year on her left foot on the 2nd and 3rd toes. This progressed to an ulcer and has failed to heal since that time. She was admitted to the [facility] earlier this year with after she was noted to be quite edematous with weight gain by the Wound Care Team. She has undergone about a 30-pound diuresis and was told she had congestive heart failure. She was to follow up with Dr. Reynolds, but has not done this as of yet. She has been followed by Dr. Naylor with antibiotics and failure of her wound to improve. ALLERGIES: SHE HAS NO ALLERGIES TO IODINE OR SHELLFISH OR ANY OTHER MEDICINE OR FOOD. SOCIAL HISTORY: She has no smoking history. Otherwise, she is . MEDICATIONS: At home include: 1. Lasix 40 b.i.d. 2. Lisinopril 20 daily. 3. Coreg 6.25 b.i.d. 4. KCl 20 a day. PAST SURGICAL HISTORY: Includes a hysterectomy in 2002 and knee arthroscopy in the past. LABORATORY VALUES: Include hemoglobin A1c of 9 in October, creatinine of 0.87. A white count of 12,400 and hemoglobin of 16. PAST MEDICAL HISTORY: Mild hypertension; diabetes mellitus, treated with [id number] medication and she checks her sugars about twice a day and they are running around 100. PHYSICAL EXAMINATION: VITAL SIGNS: Weight 165, height 5 feet 3 inches. NECK: No carotid bruits. LUNGS: Clear to auscultation. CARDIAC: Regular rate and rhythm. No murmurs. ABDOMEN: Soft and nontender. EXTREMITIES: She has palpable femoral popliteal pulses bilaterally as well as a right dorsalis pedis pulse. She has a good triphasic signal in her right DP, and I do not appreciate any Doppler signals in her left foot. She has ulcerations extensively on the 3rd toe and on the 2nd toe of the left foot. She has no edema at this time, but does have skin changes of chronic ischemia over the dorsum of her foot. The patient with probable severe tibioperoneal disease. We will proceed with angiography to delineate her anatomy and see if there is any possible percutaneous intervention that can be done. Job ID: [id number]
--- NOTE | 2020-02-20 08:46 | ULT ---
EXAM: US Arterial Doppler Lower Ext PROVIDED CLINICAL HISTORY: Peripheral vascular disease COMPARISON: 11/10/2019 FINDINGS: Grayscale and color Doppler sonography with spectral analysis was performed of bilateral common femor al, profunda femoral, superficial femoral, popliteal, anterior tibial, posterior tibial and dorsalis pedis arteries. Right: Triphasic waveforms are seen involving the common femoral, profunda femoral and posterior tibial jeremy glendy. Biphasic waveforms are seen involving the superficial femoral, popliteal, anterior tibial and dorsalis pedis arteries. No focal velocity alteration to suggest focal stenosis. Left: Biphasic waveforms are seen involving the common femoral and profunda femoral arteries. Triphasic wav eform is seen involving the proximal superficial femoral artery. There is monophasic flow within the mid superficial femoral artery with increased velocity relative to superficial femoral and contra lateral superficial femoral arteries. Triphasic flow is seen within the distal superficial femoral and proximal popliteal arteries. The distal popliteal artery demonstrates monophasic flow and increas ed velocity. There is monophasic flow is seen within the anterior tibial, posterior tibial and dorsalis pedis arteries. The findings on the left are interval with respect to prior. IMPRESSION: 1. Evidence for left popliteal artery stenosis. Consider correlation with CTA. 2. Possible mid left superficial femoral artery stenosis. Consider correlation with CTA.
[2020-02-20] MEDS ORDERED: Lisinopril 20 MG TAB PO SCH (09:00)
[2020-02-20] MEDS ORDERED: Vancomycin HCl 1 GM in Sodium Chloride 0.9% 250 ML 250 ML IVPB SCH (09:00)
[2020-02-20] MEDS ORDERED: Iopamidol 370 76% 50 ML VIAL FS ONE (09:04)
[2020-02-20] MEDS: Sodium Chloride 0.9% 1,000 ML IV SCH (10:09)
[2020-02-20] MEDS: Carvedilol 6.25 MG TAB PO SCH ×2 (10:10→17:19)
[2020-02-20] MEDS: Vancomycin HCl 1.25 GM in Sodium Chloride 0.9% 250 ML 250 ML IVPB SCH ×2 (10:10→20:29)
[2020-02-20] MEDS: Potassium Chloride 10 MEQ TAB PO SCH (10:11)
[2020-02-20] MEDS: Furosemide 40 MG TAB PO SCH ×2 (10:11→15:08)
[2020-02-20] MEDS: Lisinopril 20 MG TAB PO SCH (10:11)
[2020-02-20] MEDS ORDERED: Heparin 10,000 UNITS/1 ML VIAL ONE (11:26)
--- NOTE | 2020-02-20 12:14 | PDOC.HOSPP ---
- Subjective Encounter Date: 02/20/20 Encounter Time: 10:15 Subjective: no pain in her foot, has dressing on left foot no fever, sitting in chair - Objective Vital Signs & Weight: Vital Signs (12 hours) Temp Pulse Resp BP BP Pulse Ox 02/20/20 10:11 154/88 H 02/20/20 10:10 154/88 H 02/20/20 08:00 99 02/20/20 07:52 98.1 F 63 16 154/88 H 99 02/20/20 04:30 97.6 F 68 16 107/67 98 02/20/20 00:25 97.8 F 69 16 112/71 98 Weight Weight 165 lb 14.4 oz I&O: 02/19/20 02/20/20 02/21/20 06:59 06:59 06:59 Intake Total 240 Balance 240 Result Diagrams: 02/19/20 17:32 02/19/20 17:32 Additional Labs: Accuchecks 02/20/20 02/19/20 04:37 19:49 POC Glucose 78 162 H Hospitalist ROS - Medication Medications: Active Medications Generic Name Dose Route Start Last Admin Trade Name Freq PRN Reason Stop Dose Admin Hydrocodone Bitart/Acetaminophen 1 tab 02/19/20 17:16 02/19/20 21:47 [place] 5/325 PO 1 tab Q4H PRN Administration Moderate Pain (4-6) Carvedilol 6.25 mg 02/20/20 08:00 02/20/20 10:10 Coreg PO 6.25 mg BID-WM JOHN Administration Enoxaparin Sodium 40 mg 02/20/20 09:00 02/20/20 07:29 Lovenox SC Not Given 0900 JOHN Furosemide 40 mg 02/20/20 09:00 02/20/20 10:11 Lasix PO 40 mg 0900,1400 JOHN Administration Sodium Chloride 1,000 mls @ 75 mls/hr 02/20/20 07:30 02/20/20 10:09 Normal Saline 0.9% IV 1,000 mls .[id number] JOHN Administration Vancomycin HCl 1.25 gm/ Sodium 250 mls @ 166.67 mls/hr 02/20/20 09:00 10:10 Chloride IVPB 250 mls Q12HR JOHN Administration Lisinopril 20 mg 02/20/20 09:00 04/03/20 10:11 Zestril PO 20 mg DAILY JOHN Administration Potassium Chloride 10 meq 02/20/20 09:00 02/20/20 10:11 Klor-Con 10 PO 10 meq DAILY JOHN Administration Sodium Chloride 10 ml 02/20/20 09:00 02/20/20 08:07 Flush - Normal Saline IVF Not Given Q12HR JOHN - Exam General Appearance: awake alert Eye: PERRL, anicteric sclera ENT: no oropharyngeal lesions, moist mucosa Neck: supple, no JVD Heart: RRR, no murmur Respiratory: no wheezes, no rales Gastrointestinal: soft, non-tender, non-distended, normal bowel sounds Extremities: no edema Extremities - other findings: left 2, 3 toe dorsal area ulcers Neurological: cranial nerve grossly intact, no focal deficits Psychiatric: normal affect, A&O x 3 Hosp A/P (1) Foot osteomyelitis, left Code(s): M86.9 - OSTEOMYELITIS, UNSPECIFIED Status: Acute (2) DM type 2 (diabetes mellitus, type 2) Status: Chronic Qualifiers: Diabetes mellitus intermediate project manager insulin use: without intermediate project manager use (3) PVD (peripheral vascular disease) Code(s): I73.9 - PERIPHERAL VASCULAR DISEASE, UNSPECIFIED Status: Suspected (4) HTN (hypertension) Code(s): I10 - ESSENTIAL (PRIMARY) HYPERTENSION Status: Chronic Qualifiers: Hypertension type: essential hypertension Qualified Code(s): I10 - Essential (primary) hypertension - Plan is going for angiogram later today to asses for PVD wound care on zosyn and vanc continue current home meds watch for renal funciton hemostable
--- NOTE | 2020-02-20 12:29 | OP ---
DATE OF PROCEDURE: 02/20/2020 PREOPERATIVE DIAGNOSIS: Peripheral vascular disease with nonhealing ulcer on the left 2nd and 3rd toes. POSTOPERATIVE DIAGNOSIS: Peripheral vascular disease with nonhealing ulcer on the left 2nd and 3rd toes. PROCEDURES PERFORMED: 1. Right external iliac artery angiogram. 2. Left common femoral artery angiogram. 3. Left popliteal artery angiogram. 4. Ultrasound-guided access with ProGlide closure. ANESTHESIA: 1% lidocaine for local. TOTAL CONTRAST: 16 mL. TOTAL FLUORO TIME: 2.4 minutes. DESCRIPTION OF PROCEDURE: After consent was obtained, the patient was brought to the labor law professor, placed in supine position on labor law professor table. Appropriate central line and monitors were placed. Groins were prepped and draped in usual sterile fashion. The right groin was evaluated with ultrasound, anesthetized with 1% lidocaine. Using ultrasound guidance, the common femoral artery was accessed with micropuncture needle and wire. Micropuncture sheath was then placed. This was exchanged for a 5-Polish sheath. Hand-injected arteriogram was performed showing no significant disease in the iliac system bilaterally. Contra catheter was advanced over the aortic bifurcation into the left common femoral artery. Digital angiography was used to mariana contrast from the groin down into the ankle. Common femoral, profunda femoris, and superficial femoral arteries were all widely patent. There was minimal atherosclerotic disease of the superficial femoral artery. Superficial femoral artery and popliteal arteries were widely patent. Contra catheter was advanced down into the popliteal artery. Digital subtraction angiography was used to evaluate the below-knee circulation. Popliteal artery was patent to the trifurcation. All three trifurcation vessels were patent. Posterior tibial artery was patent down into the foot with diffuse mild disease. Peroneal and anterior tibial arteries were patent down to the ankle, where they terminated with diffuse mild disease. Catheters and guidewires were removed. Risktail guidewire was then replaced and the sheath removed. ProGlide was placed with good hemostasis. The patient tolerated the procedure well, was transferred to the recovery room and subsequently to the floor in good condition. Job ID: [id number]
[2020-02-20] MEDS: Piperacillin/Tazobactam 3.375 GM in Sodium Chloride 0.9% 100 ML IVPB SCH ×2 (15:07→21:51)
--- NOTE | 2020-02-20 15:09 | PRG ---
DATE OF SERVICE: 02/20/2020 SUBJECTIVE: Ms. Dos Santos was evaluated by Dr. Hameed. He did an angiogram and the major vessels in the left lower extremity were widely patent. She is still having the same symptoms that she presented in the office, but no other symptoms at this moment. OBJECTIVE: VITAL SIGNS: She has been afebrile. BP slightly high at 154/88. LUNGS: Clear. HEART: S1, S2 regular rate. ABDOMEN: Soft. EXTREMITIES: Left foot with areas of necrosis of the skin of the dorsum of second and third toes. LABORATORY DATA: White cell count 12.4, hemoglobin 16.7, platelets 298. IMAGING STUDIES: The x-ray of the foot did not show any evidence of the bony destruction. ASSESSMENT AND DISCUSSION: Chronic areas of necrosis of the second and third toes, which has failed treatment with antimicrobials. We will go ahead and consult Podiatry for amputation. Job ID: [id number]
--- NOTE | 2020-02-20 18:24 | CON ---
DATE OF CONSULTATION: 02/20/2020 HISTORY OF PRESENT ILLNESS: This is a 59-year-old woman, whom I am being asked to evaluate for the presence of ischemic/necrotic toes on the left foot. This is not a new problem and has been going on for several months. She has been under the care of youth services specialist, and these toes have been treated with localized debridements. She was hospitalized a few months ago with extreme edema in the lower extremities, and 30 pounds of fluid was diuresed according to her history. Dr. Naylor is also following this patient, and she recently had an angiogram of the lower extremities, which showed the large blood vessels to be without evidence of obstruction. She has been diabetic for perhaps 5 years according to her history, unsure as to if she takes any medication for that, but she does follow her glucose levels at home. She does have pain in the foot, especially at nighttime. The x-ray of the foot shows diffuse osteopenia with vascular calcifications, and there is no discussion of osteomyelitis in the report. PAST MEDICAL HISTORY: Significant for diabetes mellitus, hypertension, perhaps congestive heart failure. PAST SURGICAL HISTORY: She has had previous hysterectomy and knee arthroscopy. ALLERGIES: SHE HAS NO KNOWN ALLERGIES. MEDICATIONS: Her usual medications at home include: 1. Lasix. 2. Lisinopril. 3. Coreg. 4. Potassium chloride. 5. Tylenol No. 3. FAMILY HISTORY: She does have a family history of diabetes mellitus and coronary artery disease. SOCIAL HISTORY: She is . She is not a smoker, nor a consumer of alcohol in large quantities. PHYSICAL EXAMINATION: Examination was limited to the lower extremities. She does not have any pitting edema in the left lower extremity. She does not have any cellulitis that I can appreciate by visual inspection. There is a necrotic eschar involving the dorsum of the second and third toes. There does not seem to be any purulent discharge. Her dorsalis pedis and posterior tibial pulses are difficult to appreciate by palpation. 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 There does not appear to be a need for emergent amputation of these toes, although I suspect that she is going to lose these toes. Recommendation would be to consult with the general surgeons or parallel computing software engineer, who are here on a regular basis during the week. As noted, I do not see an indication for emergent amputation. Job ID: [id number]
[2020-02-20] MEDS: HYDROcodone/Acetaminophen 5/325 mg Tablet PO PRN (21:54)
[2020-02-21] MEDS: Sodium Chloride 0.9% 1,000 ML IV SCH ×2 (03:14)
[2020-02-21] MEDS: Piperacillin/Tazobactam 3.375 GM in Sodium Chloride 0.9% 100 ML IVPB SCH (05:04)
[2020-02-21] MEDS: Carvedilol 6.25 MG TAB PO SCH ×2 (08:44→17:46)
[2020-02-21] MEDS: Potassium Chloride 10 MEQ TAB PO SCH (08:45)
[2020-02-21] MEDS: Enoxaparin Sodium 40 MG/0.4 ML SYRINGE SC SCH (08:45)
[2020-02-21] MEDS: Lisinopril 20 MG TAB PO SCH (08:46)
[2020-02-21] MEDS: Furosemide 40 MG TAB PO SCH (08:46)
[2020-02-21] MEDS: Vancomycin HCl 1.25 GM in Sodium Chloride 0.9% 250 ML 250 ML IVPB SCH ×2 (08:46→09:45)
--- NOTE | 2020-02-21 11:57 | PDOC.HOSPP ---
- Subjective Encounter Date: 02/21/20 Encounter Time: 08:30 Subjective: c/o pain in her toes, not much relief from morphine per patient is ambulating in room - Objective Vital Signs & Weight: Vital Signs (12 hours) Temp Pulse Resp BP BP Pulse Ox 02/21/20 08:54 98 02/21/20 08:46 148/81 H 02/21/20 08:44 148/81 H 02/21/20 08:00 97.9 F 71 16 148/81 H 98 02/21/20 05:00 97.9 F 68 20 135/74 99 Weight Admit Weight 165 lb 14.4 oz Weight 165 lb 14.4 oz I&O: 02/20/20 02/21/20 02/22/20 06:59 06:59 06:59 Intake Total 240 1325 Balance 240 1325 Result Diagrams: 02/19/20 17:32 02/19/20 17:32 Additional Labs: Accuchecks 02/21/20 02/20/20 02/20/20 11:40 23:53 16:08 POC Glucose 114 H 75 113 H Hospitalist ROS - Medication Medications: Active Medications Generic Name Dose Route Start Last Admin Trade Name Freq PRN Reason Stop Dose Admin Acetaminophen/Codeine Phosphate 1 tab 02/19/20 18:09 02/21/20 03:22 Tylenol #3 PO 1 tab Q4H PRN Administration Moderate Pain (4-6) Hydrocodone Bitart/Acetaminophen 1 tab 02/19/20 17:16 02/20/20 21:54 [place] 5/325 PO 1 tab Q4H PRN Administration Moderate Pain (4-6) Carvedilol 6.25 mg 02/20/20 08:00 02/21/20 08:44 Coreg PO 6.25 mg BID-WM JOHN Administration Enoxaparin Sodium 40 mg 02/20/20 09:00 02/21/20 08:45 Lovenox SC Not Given 0900 JOHN Lisinopril 20 mg 02/20/20 09:00 02/21/20 08:46 Zestril PO 20 mg DAILY JOHN Administration Sodium Chloride 10 ml 02/20/20 09:00 02/21/20 08:47 Flush - Normal Saline IVF Not Given Q12HR JOHN - Exam General Appearance: awake alert Eye: PERRL, anicteric sclera ENT: no oropharyngeal lesions, moist mucosa Neck: supple, no JVD Heart: RRR, no murmur Respiratory: no wheezes, no rales Gastrointestinal: soft, non-tender, non-distended, normal bowel sounds Extremities: no cyanosis, no edema Neurological: cranial nerve grossly intact, no focal deficits Psychiatric: normal affect, A&O x 3 Hosp A/P (1) PVD (peripheral vascular disease) Code(s): I73.9 - PERIPHERAL VASCULAR DISEASE, UNSPECIFIED Status: Acute (2) DM type 2 (diabetes mellitus, type 2) Status: Chronic Qualifiers: Diabetes mellitus 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
[2020-02-22] MEDS: HYDROcodone/Acetaminophen 5/325 mg Tablet PO PRN (01:07)
[2020-02-22 05:44] LABS: #Basophils 0.1 thou/uL (0.0-0.2); #Eosinphils 0.5 thou/uL (0.0-0.7); #Lymphocytes 2.4 thou/uL (1.20-3.40); #Monocytes 1.2 thou/uL (0.11-0.59); #Neutrophils 6.9 thou/uL (1.40-6.50); %Basophils 0.8 % (0.0-1.0); %Eosinophils 4.7 % (0.0-10.0); %Lymphocytes 21.6 % (21.0-51.0); %Monocytes 11.2 % (0.0-10.0); %Neutrophils 61.7 % (42.0-75.0); Hemoglobin 15.3 g/dL (12.0-16.0); Mean Corpuscular HGB CONC 32.8 g/dL (32.0-36.0); Mean Corpuscular Hemoglobin 26.2 pg (27.0-31.0); Mean Corpuscular Volume 79.8 fL (78.0-98.0); Mean Platelet Volume 8.6 fL (7.4-10.4); Platelet Count 232 thou/uL (130-400); RBC Distribution Width 13.8 % (11.5-14.5); Red Blood Cell (RBC) Count 5.83 mill/uL (4.20-5.40); White Blood Cell (WBC) Count 11.1 thou/uL (4.8-10.8)
[2020-02-22 05:51] LABS: Hemoglobin A1c 5.7 % (4.0-6.0)
[2020-02-22 06:05] LABS: Anion Gap 13 mmol/L (10-20); BUN (Urea Nitrogen) 23 mg/dL (9.8-20.1); Calc. Creatinine Clearance 97 mL/min (70-130); Calcium 9.9 mg/dL (7.8-10.44); Carbon Dioxide 25 mmol/L (22-29); Chloride 105 mmol/L (98-107); Estimated GFR-MDRD 79; Glucose 77 mg/dL (70-105); Potassium 3.9 mmol/L (3.5-5.1); Sodium 139 mmol/L (136-145)
[2020-02-22] MEDS: Carvedilol 6.25 MG TAB PO SCH (08:20)
[2020-02-22] MEDS: Enoxaparin Sodium 40 MG/0.4 ML SYRINGE SC SCH (08:21)
[2020-02-22] MEDS: Lisinopril 20 MG TAB PO SCH (08:21)
[2020-02-22] MEDS ORDERED: Lidocaine 5% Patch TD SCH (09:00)
[2020-02-22] MEDS ORDERED: Clopidogrel Bisulfate 75 MG TAB PO SCH (09:00)
[2020-02-22] MEDS ORDERED: Aspirin 81 mg Enteric Coated Tablet PO SCH (09:00)
[2020-02-22 12:17] VITALS: BP 157/90; TEMP 97.8
--- NOTE | 2020-02-22 17:49 | DIS ---
DATE OF ADMISSION: 02/19/2020 DATE OF DISCHARGE: 02/22/2020 DISCHARGE DISPOSITION: To home. PRIMARY DISCHARGE DIAGNOSES: Peripheral vascular disease with rest pain and dry gangrene on left second and third toes. SECONDARY DISCHARGE DIAGNOSES: Diabetes mellitus type 2, hypertension. PROCEDURES DONE DURING HOSPITALIZATION: Left foot 3-view x-ray done shows diffuse osteopenia with stable changes involving the distal osteophyte of the second through fourth metatarsals. Arterial Doppler of lower extremity done showed evidence for left popliteal artery stenosis and possible mid left superficial femoral artery stenosis. The patient had angiogram of left lower extremity done, which showed distal peripheral vascular disease with patent major arteries for medical management. H and H 15 and 46, platelet count 232, MCV 79. BUN 23, creatinine 0.7. HbA1c was 5.7. INPATIENT CONSULTATIONS: Dr. Naylor for Infectious Disease, Dr. Bert Storm for General Surgery, Dr. Mu Hameed for Vascular Surgery. DISCHARGE MEDICATIONS: 1. Lisinopril 20 mg p.o. daily. 2. Aspirin 81 mg p.o. daily. 3. Pentoxifylline 400 mg p.o. twice daily. 4. Lidoderm 5% transdermal patch p.r.n. 5. Coreg 6.25 mg twice daily. 6. Tylenol 3 p.r.n. for pain. ALLERGIES: NO KNOWN DRUG ALLERGIES. DISCHARGE PLAN: The patient is to follow up with Dr. Manzano, her primary care physician, in 1 week. She needs to see Dr. Naylor in 2 weeks. BRIEF COURSE DURING HOSPITALIZATION: The patient initially was sent over from Dr. Naylor office on the for nonhealing ulcers on her left second and third toes from last 3 to 4 months. These were very painful at night and were draining. On clinical exam, the patient had a dry gangrene of left second and third toes on the dorsal aspects. There was initial suspicion for osteomyelitis, which has been ruled out. She has had arterial Doppler and then angiogram of the left lower extremity done, which showed distal peripheral vascular disease with rest pain for medical management. Major arteries in the left lower extremity are patent. She was placed on aspirin and initially Plavix, but the patient refused to take Plavix due to side effects and has been placed on [place]. From last three months, the patient has been aggressively managing her diabetes and has kept up her HbA1c around 5.7 now. She is counseled to continue the same and increase in graded exercise of lower extremities to improve circulation. She is hemodynamically stable, ambulating and eating well prior to discharge. Please note, I have seen and examined the patient on the day of discharge. The patient has been advised to follow up with Dr. Naylor in 2 weeks and primary care physician in 1 week. She also has wound care appointments, which she has to keep up as before. Job ID: [id number] [facility]
[2020-02-22] MEDS ORDERED: Lidocaine Patch Removal 1 EACH TOP SCH (21:00)
== END 2020-02-22 14:57 | disposition home or self-care (01) | DRG 300 ==
LOC: T4-A 14:55 → UNDOADMIN 14:55 → T4-A 16:03
PROVIDERS: ADMIT Internal Medicine; ATTEND Internal Medicine
PROC: B41GZZZ Fluoroscopy of Left Lower Extremity Arteries (ICD-10-PCS; principal; 2020-02-19)
PROC: B41CZZZ Fluoroscopy of Pelvic Arteries (ICD-10-PCS; 2020-02-19)
DX: E11.52 Type 2 diabetes mellitus with diabetic peripheral angiopathy with gangrene (principal); I96 Gangrene, not elsewhere classified; I11.0 Hypertensive heart disease with heart failure; I50.9 Heart failure, unspecified; E11.621 Type 2 diabetes mellitus with foot ulcer; L97.529 Non-pressure chronic ulcer of other part of left foot with unspecified severity; Z79.899 Other long term (current) drug therapy; Z90.710 Acquired absence of both cervix and uterus
CPT/HCPCS: 36247; 36415; 36416; 71046; 75710; 76942; 80048; 80053; 83036; 85025; 93005; 93010; 93923; C1760; C1769; J1644; J2543; J3370; J3490; J7050; Q9967